=== PATIENT | male | born 1950 | race Caucasian/White ===

== ENCOUNTER → 2023-07-10 09:45 | Outpatient (REF) | payer MEDICARE, OTHER, SELFPAY | LOC: DHSLP 09:45 | PROVIDERS: ATTENDING PHYSICIAN Family Medicine | DX: G47.33 Obstructive sleep apnea (adult) (pediatric) (principal); G47.61 Periodic limb movement disorder | CPT/HCPCS: 95810 ==

== ENCOUNTER 2023-08-26 14:45 | Emergency (ER) | payer MEDICARE, OTHER, SELFPAY ==
[2023-08-26 14:53] VITALS: BP 122/81
--- NOTE | 2023-08-26 16:45 | ED.GENMED ---
History of Present Illness
General
Chief Complaint: Cough
Source: patient
Exam Limitations: none
Time Seen by Provider: 08/26/23 15:37
Nursing documentation reviewed up to this point in time: agreed with
Travel History
Have you had any contact with someone who has COVID-19?: No
Do you have any symptoms of coronavirus? Fever > 100 degrees, chills, cough, shortness of breath, sore throat, loss of taste or smell, muscle aches, or headache?: No
History of Present Illness
History of Present Illness:
73-year-old male with past medical history of previous DVT currently on Eliquis, CAD, previous smoker, diabetes presenting to the emergency department today with concerns of ongoing cough and some mild shortness of breath that is noted for a few
weeks after having COVID. He is seen his primary care doctor multiple times who told him that this may take a few weeks and should resolve eventually. He claims that he went to an urgent care today but the x-ray was not were and he was sent to the
ER to get an x-ray. Denies any specific fevers denies chest pain denies nausea vomiting.
Past History
Past History
ED Past Medical History: CAD, HTN, Hypercholesterolemia, NIDDM, [place] and Other (Shigella , DVT, IBS, Cataracts)
ED Past Surgical History: Appendectomy and Cardiac (Stent)
Social History
Tobacco: Former smoker
Alcohol: None
Personal: Single
Living: with roommate
Employment: Employed
Family History
Family History: Diabetes and CAD
Review of Systems
Review of Systems
Allergies reviewed?: Yes
All Other Systems: ROS reviewed and negative except as documented in HPI and ROS
Phy Exam
Physical Exam
Physical Exam:
GENERAL: Alert , in no apparent distress
EYE: pupils equal and reactive
NECK: Supple, no significant adenopathy.
ENT: o/p clr, mmm.
CARDIAC: Regular rate and rhythm .
LUNGS: Clear breath sounds bilaterally, no acute respiratory distress, no wheezes/rales/rhonchi
ABDOMEN: Soft, without focal tenderness, no r/g, no cvat
NEUROLOGICAL: Alert and oriented, no focal neuro deficits
SKIN: Warm and dry, skin intact.
MUSCULOSKELETAL: No edema, well perfused.
PSYCH: Normal and appropriate interaction.
Course
Orders/Labs/Results
Orders:
Orders
08/26/23 15:59
EKG [Electrocardiogram (*1)] Urgent
Reason for Study: Shortness of Breath
EKG- Treatment ONCE
Chest [CR Chest - 2 Views ] Urgent
Comment:
Reason For Exam: cough sob
Vital Signs
Initial and Last Documented VS:
Initial Vital Signs
Temp Pulse Resp BP Pulse Ox
98.0 F 108 16 122/81 98
08/26/23 14:53 08/26/23 14:53 08/26/23 14:53 08/26/23 14:53 08/26/23 14:53
Last Documented Vital Signs
Temp Pulse Resp BP Pulse Ox
98.0 F 108 16 122/81 98
08/26/23 14:53 08/26/23 14:53 08/26/23 14:53 08/26/23 14:53 08/26/23 14:53
MDM/Problems Addressed
MDM/Problems Addressed:
74-year-old male presenting to the emergency department today with concerns of ongoing cough weeks after having COVID. He feels that he may have a pneumonia he went to urgent care but the x-ray machine was not working thus they sent him to the ER.
Denies any severe symptoms denies fevers denies significant breath or chest pain but claims [place] is going [place] 2 [place] and wanted to get assessed for this. Here he is well-appearing generally no acute distress initial pulse 98%
pulse initially mildly tachycardic but improving without specific treatment on my assessment. X-ray was performed showing potential pneumonia. He was treated with antibiotic otherwise for outpatient management return precautions given.
*Critical Care Note
Total Time (30-74mins, 75-104mins- exclusive of procedures): Not Applicable
ED Attending Note
-
Portions of this chart may have been created with voice recognition software.� Occasional wrong word or��sound alike� substitutions may have occurred due to the inherent limitations of voice recognition software.
Discharge Plan
Departure
Patient Disposition: Home (Routine Discharge)
Date of Disposition: 08/26/23
Time of Disposition: 16:49
Patient with high blood pressure during this ER visit?: No
Condition: Good
Covid-19: Not Applicable
Discharge Problem:
Pneumonia
Instructions: Pneumonia, Adult (DC)
Prescriptions:
New
cefpodoxime 200 mg tablet
200 mg PO BID 7 Days Qty: 14 0RF
azithromycin 500 mg tablet
500 mg PO DAILY 2 Days Qty: 2 0RF
No Action
bupropion HCl 100 MG tablet sustained-release 12 hr
200 tab PO HS
atorvastatin [Lipitor] 80 MG tablet
80 mg PO DAILY
carvedilol 12.5 MG tablet
12.5 mg PO BID
nitroglycerin 0.4 MG tablet, sublingual
0.4 mg sublingual [id number] PRN (Reason: chest pain )
metformin 1,000 MG tablet
1,000 mg PO BID Qty: 0 0RF
Rx Instructions:
Resume sat evening
citalopram 20 MG tablet
60 mg PO DAILY
Victoza 2-Oscar 0.6 mg/0.1 mL (18 mg/3 mL) Pen Injector
1.8 mg SC DAILY
mupirocin 2 % ointment
1 applic topical BID Qty: 1 0RF
Patient Comments:
Patient stared this treatment on 06/26/22 in the morning. Patient admoinistered this medication this mornint @ 04:00 on 06/28/22.
cyanocobalamin (vitamin B-12) [Vitamin B-12] 1,000 mcg Tablet
1,200 mcg PO DAILY
pantoprazole [Protonix] 20 mg Tablet,Delayed Release (Dr/Ec)
20 mg PO DAILY
dicyclomine 20 mg Tablet
20 mg PO DAILY
ezetimibe [Zetia] 10 mg Tablet
10 mg PO DAILY
omega 7-ors-olw-fish oil [Fish Oil] 1,000 mg (120 mg-180 mg) Capsule
2 cap PO DAILY
Hold Instructions: Resume on 07/11/22.
rifaximin 550 mg Tablet
550 mg PO BID PRN (Reason: IBS)
turmeric root extract 500 mg Capsule
500 mg PO DAILY
Hold Instructions: Resume on 07/11/22.
cefadroxil 500 mg capsule
500 mg PO BID Qty: 14 0RF
Rx Instructions:
*Take w/ food
*Take w/ probiotic
*POST-OP USE
oxycodone 5 mg tablet
5 - 10 mg PO Q6HPRN PRN (Reason: 1 tab moderate-2 tabs severe pain) Qty: 30 0RF
Rx Instructions:
Dx TKA
ongoing therapy
Saccharomyces boulardii [Florastor] 250 mg capsule
250 mg PO BID Qty: 1 0RF
Eliquis 2.5 mg tablet
2.5 mg PO BID Qty: 60 1RF
Patient Comments:
Per patient he stopped this medication 10 days ago on 06/17/22.
aspirin [[place] Chewable Aspirin] 81 mg tablet,chewable
81 mg PO DAILY Qty: 30 0RF
Rx Instructions:
reduce aspirin to 81mg daily while on Eliquis
tamsulosin 0.4 MG capsule
0.4 mg PO HS Qty: 0 0RF
acetaminophen [Acetaminophen Pain Relief] 500 mg tablet
1,000 mg PO Q6H Qty: 60 0RF
Rx Instructions:
DO NOT exceed >4000 mg daily.
docusate sodium [Colace] 100 mg capsule
100 mg PO BID Qty: 30 0RF
Rx Instructions:
Take 2x daily while on post-op narcotics.
senna 8.6 mg capsule
17.2 mg PO BID PRN (Reason: constipation) Qty: 30 0RF
Rx Instructions:
Take 2x daily as needed for post-surgical constipation unrelieved by Colace.
spironolactone 25 MG tablet
25 mg PO DAILY Qty: 1 0RF
Rx Instructions:
HOLD if systolic blood pressure <130 while on Oxycodone.
hydrochlorothiazide 12.5 MG capsule
12.5 mg PO DAILY Qty: 30 0RF
Rx Instructions:
HOLD if systolic blood pressure <130 while on Oxycodone.
montelukast 10 MG tablet
10 mg PO DAILYPRN PRN (Reason: asthma) Qty: 0 0RF
tizanidine 2 mg Tablet
2 mg PO TIDPRN PRN (Reason: Spasms) Qty: 1 0RF
Rx Instructions:
Home medication.
Caution with oxycodone - can cause drowsiness.
Referrals:
Salas Frances MD [Family Provider] -
Activity Restrictions/Additional Instructions:
You came to the emergency department today with concerns of cough. You are found to have a likely pneumonia. Please take prescribed antibiotics. Return to the emergency department for any worsening, new or concerning symptoms.
Interventions
Interventions:
*ED COVID-19 Vaccine History Last Done: 08/26/23 14:53
[2023-08-26] MEDS: OMNICEF 300 MG PO (17:02)
[2023-08-26] MEDS: ZITHROMAX 500 MG PO (17:03)
[2023-08-26 17:16] VITALS: BP 130/78
== END 2023-08-26 17:27 | disposition home or self-care (01) ==
LOC: EMR 14:45
PROVIDERS: EMERGENCY PHYSICIAN Emergency Medicine; FAMILY PHYSICIAN Family Medicine
DX: J18.9 Pneumonia, unspecified organism (principal); I25.10 Atherosclerotic heart disease of native coronary artery without angina pectoris; I10 Essential (primary) hypertension; E78.00 Pure hypercholesterolemia, unspecified; E11.36 Type 2 diabetes mellitus with diabetic cataract; I25.2 Old myocardial infarction; K58.9 Irritable bowel syndrome, unspecified; Z79.01 Long term (current) use of anticoagulants; Z82.49 Family history of ischemic heart disease and other diseases of the circulatory system; Z83.3 Family history of diabetes mellitus; Z86.718 Personal history of other venous thrombosis and embolism; Z87.891 Personal history of nicotine dependence; Z90.49 Acquired absence of other specified parts of digestive tract; Z95.5 Presence of coronary angioplasty implant and graft
CPT/HCPCS: 99283; 71046; 93005

== ENCOUNTER → 2023-09-17 15:59 | Outpatient (REF) | payer MEDICARE, OTHER, SELFPAY | LOC: DHCBS HW 15:59 | PROVIDERS: ATTENDING PHYSICIAN Internal Medicine Cardiovascular Disease; FAMILY PHYSICIAN Family Medicine | DX: I10 Essential (primary) hypertension (principal); I25.10 Atherosclerotic heart disease of native coronary artery without angina pectoris; R06.02 Shortness of breath | CPT/HCPCS: 93306 ==

== ENCOUNTER → 2023-09-25 10:19 | Outpatient (REF) | payer MEDICARE, OTHER, SELFPAY ==
[2023-09-25 11:16] LABS: % Immature Granulocytes 0.2 % (0-0.5); % Lymphocytes 41.2 % (20.5-51.1); % Monocytes 7.6 % (1.7-9.3); Absolute Basophils 0.1 10^3/uL (0-0.2); Absolute Eosinophils 0.3 10^3/uL (0-0.7); Absolute Lymphocytes 2.4 10^3/uL (1.2-3.4); Absolute Monocytes 0.4 10^3/uL (0.1-0.6); Absolute Neutrophils 2.6 10^3/uL (1.4-6.5); Hematocrit 38.7 % (39.0-52.0); Hemoglobin 13.4 g/dL (13.0-18.0); Mean Corp Hgb Conc. 34.6 g/dL (33.0-37.0); Mean Corpuscular Hgb 31.8 pg (27.0-31.0); Mean Corpuscular Volume 91.9 fL (80.0-94.0); Mean Platelet Volume 9.8 fL (7.4-10.4); Nucleated Red Blood Cells % 0 % (-); Platelet Count 221 10^3/uL (130-400); Red Blood Cell Count 4.21 10^6/uL (4.70-6.10); Red Cell Dist. Width 12.9 % (11.5-14.5); White Blood Cell Count 5.8 10^3/uL (4.8-10.8)
[2023-09-25 12:18] LABS: ALT (SGPT) 18 U/L (0-50); AST (SGOT) 17 U/L (17-59); Albumin 4.1 g/dl (3.5-5.0); Alkaline Phosphatase 61 U/L (38-126); Blood Urea Nitrogen 23 mg/dl (9-20); Calcium 9.3 mg/dl (8.4-10.2); Chloride 98 mmol/L (98-107); Glucose 376 mg/dl (70-99); HDL Cholesterol 41 mg/dl; Sodium 133 mmol/L (135-145); Total Bilirubin 0.5 mg/dl (0.2-1.3); Total Cholesterol 220 mg/dl (50-199); Total Protein 6.7 g/dl (6.3-8.2); eGFR > 60.00
[2023-09-25 12:26] LABS: Carbon Dioxide 24 mmol/L (22-30); Potassium 4.7 mmol/L (3.5-5.1)
[2023-09-25 12:37] LABS: Microalbumin, Random Urine 0.6 mg/dl (0.6-1.7); Microalbumin/creatinine Ratio 14.1 mg/g; Triglyceride 499 mg/dl (10-149)
[2023-09-25 12:40] LABS: TSH 1.55 uIU/ml (0.47-4.68)
[2023-09-25 13:10] LABS: LDL Cholesterol, Direct 104 mg/dl
== END ==
LOC: REG 10:19
PROVIDERS: ATTENDING PHYSICIAN Family Medicine
DX: E11.9 Type 2 diabetes mellitus without complications (principal); E78.5 Hyperlipidemia, unspecified; R53.83 Other fatigue
CPT/HCPCS: 36415; 80053; 80061; 82043; 82570; 83036; 83721; 84443; 85025

== ENCOUNTER 2023-11-21 06:51 | Emergency (ER) | payer MEDICARE, OTHER, SELFPAY ==
[2023-11-21] VITALS (10 sets, daily range): BP systolic 149–167; BP diastolic 84–91; PULSE 73; O2SAT 99; BMI 25.9
--- NOTE | 2023-11-21 06:57 | ED.CVA ---
History of Present Illness
General
Chief Complaint: CVA/TIA Symptoms
Source: patient and ambulance crew
Exam Limitations: none
Time Seen by Provider: 11/21/23 06:55
Nursing documentation reviewed up to this point in time: agreed with
Onset of Stroke Symptoms
Onset of symptoms known: Yes
Date of onset of symptoms: 11/21/23
Time of onset of symptoms: 05:30
Travel History
Have you had any contact with someone who has COVID-19?: No
Do you have any symptoms of coronavirus? Fever > 100 degrees, chills, cough, shortness of breath, sore throat, loss of taste or smell, muscle aches, or headache?: No
History of Present Illness
History of Present Illness:
73-year-old male presents emergency department after waking up at 5 AM, having a headache, and feeling a sharp pain in his left neck. He notes numbness and tingling and weakness in his left arm and leg. He takes Eliquis for history of blood clots,
and states he took Eliquis this morning.
Past History
Past History
ED Past Medical History: CAD, HTN, Hypercholesterolemia, NIDDM, [place] and Other (Shigella , DVT, IBS, Cataracts)
ED Past Surgical History: Appendectomy and Cardiac (Stent)
Social History
Tobacco: Former smoker
Alcohol: None
Drug: None
Personal: Single
Living: with roommate
Employment: Employed
Family History
Family History: Diabetes and CAD
Review of Systems
Review of Systems
Allergies reviewed?: Yes
All Other Systems: Not applicable
Constitutional: Reports no symptoms
EENT: Reports no symptoms
Respiratory: Reports no symptoms
Cardiac: Reports no symptoms; Denies chest pain
ABD/GI: Reports no symptoms
: Reports no symptoms
Musculoskeletal: Reports no symptoms
Skin: Reports no symptoms
Neurological: Reports weakness and numbness
Endocrine: Reports no symptoms
Hematologic/Lymphatic: Reports no symptoms
Psychiatric: Reports no symptoms
Phy Exam
Physical Exam
Physical Exam:
Physical Exam
General: no apparent distress, not acutely ill
Neck: supple. no meningeal signs. normal posterior pharynx
Heart: s1/s2 regular rate and rhythm, no murmur. equal radial
pulses.
HEENT: Pupils equal round reactive to light, EOMI
Lungs: no acute respiratory distress. clear bilaterally
Abdomen: normal bowel sounds. not tender. no CVAT
Neuro: alert and oriented. mild left leg and arm weakness cranial nerves II through XII intact
Skin: no rash
Psychiatric: well kept. interactive and cooperative
Extremities: no edema. no calf tenderness. negative homans. good distal pulses
Scores
NIH Stroke Score
Level of Consciousness: 0 - Alert
LOC Questions: 0-Answers both correctly
LOC Commands: 0-Performs both correctly
Best Horizontal Gaze: 0-Normal
Visual Jennings: 0=Normal, no visual loss
Facial Palsy: 0=Normal, symmetrical
Motor - Right Arm: 0=No drift 10 seconds
Motor - Left Arm: 1=Drift < 10 seconds
Motor - Right Le-No drift 5 seconds
Motor - Left Le-Drift < 5 seconds
Limb Ataxia: 0-Absent
Sensation: 0-Normal
Best Language: 0-No aphasia
Dysarthria: 0-Normal
Extinction and Inattention: 0-No abnormality
Total Score:: 2
Course
Orders/Labs/Results
Orders:
Orders
11/21/23 Breakfast
2000 calorie (17 carb) Diabetic
At Your Request: Full Participation
11/21/23 06:55
CT Head W/o Cont STROKE ALERT Urgent
Comment:
Reason For Exam: left arm and leg weakness 530am
CT Head/Neck Ang STROKE ALERT Urgent
Comment:
Reason For Exam: left arm and leg weakness 530am
Cardiac Monitoring- Treatment ONCE
IV Insert/Care/Rem.- Treatment PRN
Pulse Ox/cont/shift [RESP] Stat
Quantity: 1
11/21/23 06:56
EKG [Electrocardiogram (*1)] Stat
Reason for Study: Fatigue / Weakness
Electrocardiogram (*1) Stat
Reason for Study: Other
Other Reason for Exam: neuro symptoms
EKG- Treatment ONCE
EKG- Treatment ONCE
11/21/23 06:57
Complete Blood Count/With Diff Urgent
Comprehensive Metabolic Panel Urgent
PTT Urgent
Prothrombin Time Urgent
11/21/23 08:03
Aspirin 325 mg PO NOW STA
Prochlorperazine [Compazine] 10 mg PO NOW STA
NIH Stroke Scale As Directed
Directions: Per protocol
Neurological Checks As Directed
Frequency: Per unit guidelines
11/21/23 08:04
MR Brain Without Contrast Routine
Comment:
Reason For Exam: Eval R subcortical infarct, L leg/arm weakness
Recent pill cam endoscopy?: No
11/21/23 08:13
Occupational Therapy Consult [Ot Eval And Treat] Routine
Pt Eval And Treat Routine
Treatment: LEft arm leg weakness ?stroke or migraine
Activity Level: Out of Bed- Chair
11/21/23 16:00
Acetaminophen [Tylenol] 1,000 mg PO TID
11/21/23 18:00
Atorvastatin [Lipitor] 80 mg PO QPM
11/22/23 06:00
Cardiovascular Evaluation IN AM
Glycohemoglobin (HgbA1c) IN AM
11/22/23 08:00
Aspirin Low Dose EC [Aspir Low (Enteric Coated)] 81 mg PO DAILY
Abnormal Lab Results
11/21/23
06:57
RBC 4.25 L 10^6/uL
(4.70-6.10)
MCH 31.8 H pg
(27.0-31.0)
Glucose 142 H mg/dl
(70-99)
11/21/23 06:57
11/21/23 06:57
Vital Signs
Initial and Last Documented VS:
Initial Vital Signs
BP
165/87
11/21/23 06:52
Last Documented Vital Signs
Temp Pulse Resp BP Pulse Ox
98.7 F 102 17 165/89 98
11/21/23 07:26 11/21/23 12:03 11/21/23 12:03 11/21/23 12:03 11/21/23 11:52
*Radiology
Radiology exam reviewed: radiology read reviewed (CT head no acute findings, CT head and neck angiography no acute findings, MRI brain normal)
*Pulse Oximetry
Patient hypoxic: no
*EKG
Interpreted by ED Provider?: Yes
EKG Intrepretation Date: 11/21/23
EKG Intrepretation Time: 06:59
Interpretation: normal
Comparison EKG: changes noted
Heart Rate: 78
Rate: normal
Rhythm: sinus
Pinon: normal axis
Interval: normal interval
QRS Pattern: normal QRS
Ischemia: no ischemia
*Financial Economist Interpretation
Rate: normal
Interpretation: normal
Heart Rate: 78
Rhythm: sinus
*Critical Care Note
Total Time (30-74mins, 75-104mins- exclusive of procedures): 30
comment:
Critical care statement: A total of 30 minutes of critical care time was provided for this patient. This includes management of unstable vital signs, evaluation of the patient at bedside, reviewing the patient's pertinent medical records, discussion
with consultants, review of old EKGs and review of pertinent medical records. This time with separate from time utilized to perform the aforementioned documented procedures
Data Reviewed
Prescriptions/Medications Considered But Not Given:
TNK considered, but not indicated
Patient Management
Social determinants of health affecting care: Living situation
Discussion with other providers: Hospitalist and Trust Manager (Neurology, Dr. Castillo and Dr. Goddard)
Escalation/DeEscalation of care consider admission/obs:
MRI negative, admit not indicated
ED Attending Note
-
Portions of this chart may have been created with voice recognition software.� Occasional wrong word or��sound alike� substitutions may have occurred due to the inherent limitations of voice recognition software.
Discharge Plan
Departure
Patient Disposition: Home (Routine Discharge)
Date of Disposition: 11/21/23
Time of Disposition: 08:10
Admit to: Telemetry
Presentation/result/management discussed w/ accepting MD/DO: Hospitalist
Patient with high blood pressure during this ER visit?: Yes
Condition: Fair
Discharge Problem:
Paresthesia
Instructions: Paresthesia (DC), BLOOD PRESSURE
Prescriptions:
No Action
atorvastatin [Lipitor] 80 MG tablet
80 mg PO DAILY
carvedilol 12.5 MG tablet
12.5 mg PO BID
metformin 1,000 MG tablet
1,000 mg PO BID Qty: 0 0RF
citalopram 20 MG tablet
40 mg PO DAILY
pantoprazole [Protonix] 20 mg Tablet,Delayed Release (Dr/Ec)
20 mg PO DAILY
ezetimibe [Zetia] 10 mg Tablet
10 mg PO DAILY
Eliquis 2.5 mg tablet
2.5 mg PO BID Qty: 60 1RF
aspirin [[place] Chewable Aspirin] 81 mg tablet,chewable
81 mg PO DAILY Qty: 30 0RF
zinc sulfate 25 mg zinc (110 mg) Tablet
25 mg PO DAILY
meloxicam 7.5 mg Tablet
7.5 mg PO DAILYPRN PRN (Reason: arthritis)
candesartan 8 mg Tablet
8 mg PO DAILY
vitamin E 268 mg (400 unit) Capsule
268 mg PO DAILY
bupropion HCl 300 mg Tablet Extended Release 24 Hr
300 mg PO DAILY
cholecalciferol (vitamin D3) [Vitamin D3] 25 mcg (1,000 unit) Tablet
25 mcg PO DAILY
insulin glargine [Lantus Solostar U-100 Insulin] 100 unit/mL (3 mL) Insulin Pen
15 unit SC HSPRN PRN (Reason: blood sugar)
Descovy 200-25 mg Tablet
1 tab PO DAILY
Mounjaro 2.5 mg/0.5 mL Pen Injector
2.5 mg SC PATEL@1400
Referrals:
Royal Goddard MD [Active] - Call in 1-3 days for appt
UNKNOWN,NO INTERVIEW [Family Provider] -
Activity Restrictions/Additional Instructions:
Take aspirin 81 mg daily and continue eliquis twice a day
Interventions
Interventions:
*Risk Screen - Suicide Last Done: 11/21/23 07:31
*General Assessment Last Done: 11/21/23 07:28
*Neglect/Abuse Screening Last Done: 11/21/23 07:28
ED- Fall Risk Assessment Last Done: 11/21/23 07:31
*ED COVID-19 Vaccine History Last Done: 11/21/23 07:28
ED- Pulmonary Assessment Last Done: 11/21/23 07:31
ED- Neurological Assessment Last Done: 11/21/23 07:31
ED- Cardiac Assessment Last Done: 11/21/23 07:31
ED Swallowing Screen Last Done: 11/21/23 10:12
Discharge Date and Time
Print Language: BELARUSIAN
[2023-11-21 07:09] LABS: % Basophils 1.1 % (0-2); % Eosinophils 4.9 % (0-6); % Immature Granulocytes 0.5 % (0-0.5); % Lymphocytes 41.7 % (20.5-51.1); % Monocytes 8.2 % (1.7-9.3); % Neutrophils 43.6 % (42.2-75.2); Absolute Basophils 0.1 10^3/uL (0-0.2); Absolute Eosinophils 0.3 10^3/uL (0-0.7); Absolute Lymphocytes 2.7 10^3/uL (1.2-3.4); Absolute Monocytes 0.5 10^3/uL (0.1-0.6); Absolute Neutrophils 2.8 10^3/uL (1.4-6.5); Hematocrit 39.6 % (39.0-52.0); Hemoglobin 13.5 g/dL (13.0-18.0); Mean Corp Hgb Conc. 34.1 g/dL (33.0-37.0); Mean Corpuscular Hgb 31.8 pg (27.0-31.0); Mean Corpuscular Volume 93.2 fL (80.0-94.0); Mean Platelet Volume 9.3 fL (7.4-10.4); Nucleated Red Blood Cells % 0 % (-); Platelet Count 200 10^3/uL (130-400); Red Blood Cell Count 4.25 10^6/uL (4.70-6.10); Red Cell Dist. Width 12.9 % (11.5-14.5); White Blood Cell Count 6.4 10^3/uL (4.8-10.8)
[2023-11-21 07:14] LABS: INR 0.92; PT 12.2 Sec (11.4-14.6)
[2023-11-21 07:15] LABS: APTT 30.4 Sec (23.4-35.0)
[2023-11-21 07:17] LABS: ALT (SGPT) 20 U/L (0-50); AST (SGOT) 25 U/L (17-59); Albumin 4.2 g/dl (3.5-5.0); Alkaline Phosphatase 47 U/L (38-126); Blood Urea Nitrogen 20 mg/dl (9-20); Carbon Dioxide 25 mmol/L (22-30); Chloride 101 mmol/L (98-107); Glucose 142 mg/dl (70-99); Potassium 4.5 mmol/L (3.5-5.1); Sodium 135 mmol/L (135-145); Total Bilirubin 0.5 mg/dl (0.2-1.3); Total Protein 6.9 g/dl (6.3-8.2); eGFR > 60.00
--- NOTE | 2023-11-21 07:36 | CON.NEURO4 ---
Addendum entered and electronically signed by Juan Carlos Castillo MD 11/21/23 12:47:
1. Place on 1000 mg twice daily levetiracetam
2. Advised on minimizing marijuana use and ideally cutting out
3. Advised on not taking extra doses of seizure medication unless directed by medical professional
4. Provided extensive education on the need for consistent use of levetiracetam and that he may not have been on a sufficient dose for seizure prevention, as similar and 50 mg twice daily levetiracetam is only low to medium dose and is nowhere
near maximum dosing range for the medication. Discussed importance of medication and the risks of uncontrolled seizures as significant and that the majority of patients can have seizures controlled on 1 medication.
5. I gave information for the neurology [facility] for follow-up
6. From my perspective would not require EEG or brain imaging given known epilepsy and normal neurologic exam currently
7. No barriers to discharge from my standpoint
Original Note:
Consultation - Neurology 4
-
CONSULTING PHYSICIAN: Genoveva Castillo
REFERRING PHYSICIAN: ER
DICTATED BY: Genoveva Castillo
DATE/TIME OF REQUEST: 11/21/23
DATE/TIME OF CONSULTATION: 11/21/23
Reason for Consultation: Stroke alert left arm and leg weakness
History of Present Illness:
Patient is a 73-year-old man with past medical history of pbi-nivypxu-vcrsojrpu diabetes mellitus, hypertension, previous DVT, coronary artery disease with history of WI and stent presented hospital with acute onset of left facial paresthesia left
neck and head pain and left arm and leg weakness. Patient not present last night noticed sometime this morning around 4-5 AM. Patient felt like he had an unusual sensation like something was moving up his neck into his head that was uncomfortable
and painful. Symptoms seem to be much worse when EMS arrived he had greater left arm weakness and was having significant difficulty walking he does note that the symptoms seem improved at this time but not completely resolved sort of feeling of
weakness in the left arm and leg. Headache is moderate to severe no nausea or vomiting or photophobia at this time. No recent head or neck trauma. He had visit with his primary care doctor who he reports instructed him to resume Eliquis given
history of DVT and he did take the Eliquis this morning. He does not have any missed doses of daily aspirin but is usually compliant with this. He has had no similar events of unilateral weakness in the past no history of stroke or TIA. He does
relate a history of migraine headaches without aura that seem to have abated around 4 years ago with these headaches due to severe head pain that was pounding with some mild photophobia no significant nausea or vomiting no vision changes paresthesia
or weakness with these headaches.
Past Medical History: Coronary artery disease with history of WI status post stent, osteoarthritis, hypertension, hyperlipidemia, left leg DVT, venous insufficiency, orthostatic hypotension, obstructive sleep apnea on CPAP, degenerative disc
disease, anxiety/depression, klu-ifqmtkr-kjvildlfc diabetes mellitus
Surgical History: Cataract surgery, coronary stent, appendectomy, left inguinal hernia repair
Family History: Non-contributory
Social History: Retired, stays active in organizations and is social, retired from [employer], quit smoking about 1985 and alcohol as well
Review of Symptoms:
Patient denies any fever, headache, chest pain, shortness of breath, GI or symptoms.
Physical Exam:
Middle-age man no distress well-appearing no signs of head or neck trauma eyes are clear oropharynx is clear, neck supple forage motion no masses, heart rate regular breathing unlabored abdomen soft nontender no lower extremity no rash seen
Neurologic Examination:
The patient is awake, alert and oriented x 3. He is able to follow commands and answer questions appropriately. There is no aphasia or dysarthria. On cranial nerve assessment, pupils are 3 mm bilateral, round and reactive to light and
accommodation. Visual jennings are full. Extraocular movements are intact. Facial sensations are intact and bilaterally symmetrical, there is no facial asymmetry. Subjective left face paresthesia V2-V3 to light touch. Hearing is intact bilaterally
to normal conversation volume. Tongue palate and uvula are midline. Sternocleidomastoid strengths are full bilaterally. Shoulder abduction 5/5 arm flexion 5/5, left leg hip flexion shows some mild weakness 4+/5, right leg hip flexion 5/5. No
downward drift of the arms or pronator drift of the arms, mild left leg drifting down from antigravity position. Deep tendon reflexes are 2+ bilateral upper and lower extremities and Babinski is absent bilaterally. No sensory neglect. Coordination
is intact by finger to nose bilaterally.
Neuro Imaging:
CTA head and neck with no intracranial occlusion no significant intracranial stenosis no carotid stenosis basilar artery patent
No acute infarct seen no hemorrhage no mass
Impressions
1. Acute onset left facial paresthesia and mild left arm and leg weakness, accompanied by headache. Most concerning for minor stroke or TIA, migraine headache with motor symptoms is on differential diagnosis but would not assume this given his
age and pre-existing medical conditions.
2. History of coronary artery disease and myocardial infarction previously status post stent
3. History of DVT in the left leg reported as unprovoked
4. Azt-ouvlgnt-gozcytnoy diabetes mellitus
5. Hypertension
6. Hyperlipidemia
7. Obstructive sleep apnea
Patient has the following risk factors for their symptoms: Hypertension, diabetes
IV Tenecteplase/IAT candidacy: Not a candidate for tenecteplase given apixaban use this morning, no large vessel occlusion on CTA of the head neck would not be an ideal candidate
Recommendations:
1. Would allow for permissive hypertension goal less than 220/120 until tomorrow morning at 7 AM
2. Would hold apixaban
3. Give aspirin 325 mg once now continue aspirin 81 mg daily
4. Neurologic checks and NIH stroke scales
5. Continue atorvastatin 80 mg daily
6. Monitor on cardiac telemetry and check transthoracic echocardiogram
7. Check MRI of the brain without contrast, CTA of the head and neck checked in the ED
8. For headache would give 10 mg p.o. prochlorperazine once, 1000 mg 3 times daily Tylenol for today
9. PT/OT evaluations
10. Check lipid panel and HbA1c
Will follow
Discussed patient care with: Patient, ED
NIH Stroke Score
Subsequent NIH Scale
Date of Subsequent NIH Scale: 11/21/23
Time of Subsequent NIH Scale: 08:00
NIH Stroke Score
Level of Consciousness: 0 - Alert
LOC Questions: 0-Answers both correctly
LOC Commands: 0-Performs both correctly
Best Horizontal Gaze: 0-Normal
Visual Jennings: 0=Normal, no visual loss
Facial Palsy: 0=Normal, symmetrical
Motor - Right Arm: 0=No drift 10 seconds
Motor - Left Arm: 0=No drift 10 seconds
Motor - Right Le-No drift 5 seconds
Motor - Left Le-Drift < 5 seconds
Limb Ataxia: 0-Absent
Sensation: 1-Mild loss
Best Language: 0-No aphasia
Dysarthria: 0-Normal
Extinction and Inattention: 0-No abnormality
Total Score:: 2
Home Medications
-
Home Medications
bupropion HCl 100 mg tablet,12 hr sustained-release 200 tab PO HS 10/09/09
atorvastatin 80 mg tablet (Lipitor) 80 mg PO DAILY 05/30/18
carvedilol 12.5 mg tablet 12.5 mg PO BID 05/30/18
metformin 1,000 mg tablet 1,000 mg PO BID ##0 05/30/18
nitroglycerin 0.4 mg sublingual tablet 0.4 mg sublingual [id number] PRN chest pain 05/30/18
citalopram 20 mg tablet 60 mg PO DAILY 07/21/20
liraglutide 0.6 mg/0.1 mL (18 mg/3 mL) subcutaneous pen injector (Victoza 2-Oscar) 1.8 mg SC DAILY 07/21/20
cyanocobalamin (vitamin B-12) 1,000 mcg tablet (Vitamin B-12) 1,200 mcg PO DAILY 06/07/22
dicyclomine 20 mg tablet 20 mg PO DAILY 06/07/22
ezetimibe 10 mg tablet (Zetia) 10 mg PO DAILY 06/07/22
mupirocin 2 % topical ointment 1 applic topical BID #1 tube 06/07/22
omega 6-cyn-wgb-fish oil 1,000 mg (120 mg-180 mg) capsule (Fish Oil) 2 cap PO DAILY 06/07/22
pantoprazole 20 mg tablet,delayed release (Protonix) 20 mg PO DAILY 06/07/22
rifaximin 550 mg tablet 550 mg PO BID PRN IBS 06/07/22
turmeric root extract 500 mg capsule 500 mg PO DAILY 06/07/22
Saccharomyces boulardii 250 mg capsule (Florastor) 250 mg PO BID #1 cap 06/27/22
apixaban 2.5 mg tablet (Eliquis) 2.5 mg PO BID Blood clot prevention/tx #60 tabs 06/27/22
aspirin 81 mg chewable tablet ([place] Chewable Low Dose Aspirin) 81 mg PO DAILY #30 tabs 06/27/22
cefadroxil 500 mg capsule 500 mg PO BID infection prevention #14 caps 06/27/22
oxycodone 5 mg tablet 5 - 10 mg (1 - 2 x 5 mg) PO Q6HPRN PRN 1 tab moderate-2 tabs severe pain #30 tabs 06/27/22
tamsulosin 0.4 mg capsule 0.4 mg PO HS #0 caps 06/27/22
acetaminophen 500 mg tablet (Acetaminophen Pain Relief) 1,000 mg (2 x 500 mg) PO Q6H #60 tabs 06/28/22
docusate sodium 100 mg capsule (Colace) 100 mg PO BID #30 caps 06/28/22
hydrochlorothiazide 12.5 mg capsule 12.5 mg PO DAILY #30 caps 06/28/22
montelukast 10 mg tablet 10 mg PO DAILYPRN PRN asthma #0 tabs 06/28/22
sennosides 8.6 mg capsule (senna) 17.2 mg (2 x 8.6 mg) PO BID PRN constipation #30 caps 06/28/22
spironolactone 25 mg tablet 25 mg PO DAILY #1 tab 01/18/23
tizanidine 2 mg tablet 2 mg PO TIDPRN PRN Spasms #1 tab 06/28/22
azithromycin 500 mg tablet 500 mg PO DAILY 2 days #2 tabs 08/26/23
cefpodoxime 200 mg tablet 200 mg PO BID 7 days #14 tabs 08/26/23
Allergies
-
Allergies
Allergy/AdvReac Type Severity Reaction Status Date / Time
codeine Allergy Resp. Verified 08/26/23 14:55
Depression
lisinopril Allergy Tongue Verified 08/26/23 14:55
Swelling
Penicillins Allergy Rash Verified 08/26/23 14:55
Sulfa (Sulfonamide Allergy Rash Verified 08/26/23 14:55
Antibiotics)
Vital Signs / Labs
-
Vital Signs and Labs:
Temp Pulse Resp BP Pulse Ox
98.7 F 76 18 165/87 96
11/21/23 07:26 11/21/23 07:26 11/21/23 07:26 11/21/23 07:26 11/21/23 07:31
11/21/23 06:57
11/21/23 06:57
11/21/23
06:57
RBC 4.25 L
MCH 31.8 H
Glucose 142 H
[2023-11-21] MEDS: ASPIRIN 325 MG PO (08:51)
[2023-11-21] MEDS: COMPAZINE 10 MG PO (08:51)
--- NOTE | 2023-11-21 12:34 | CON.HOSP ---
Family Physician
-
Family Physician: NO INTERVIEW UNKNOWN
Chief Complaint
-
left sided weakness
History of Present Illness
73-year-old with past medical history for type 2 diabetes, hypertension, DVT, coronary artery disease, [place] presented to us with left-sided numbness and weakness since this morning. Patient was having significant difficulty with walking. Patient
also complained of left-sided headache.. Symptoms subsided by the time he got here. Denies any nausea, vomiting, abdominal pain, blurry vision. Patient denied any fever, chills, chest pain, shortness of breath. Denied abdominal pain, nausea,
vomiting, diarrhea. Patient denied dysuria materia.
Head CT, CT head neck, MRI with no acute findings.
Medical History
Past Medical History
Past Medical History: Reports Other
Additional Past Medical History:
Diabetes
Depression
Anxiety
EGD
Coronary artery disease
MRI
Osteoarthritis
Hypertension
Hyperlipidemia
DVT
Venous insufficiency
Hypertension
Obstructive sleep apnea
Past Surgical History: Reports Other
Additional Past Surgical History:
Cardiac stent
Surgery
Appendectomy
Left inguinal repair
Social History
Tobacco: Former Smoker
Alcohol: Former
Drug: None
Family History
Family History: Reviewed & Not Pertinent
Allergies / Home Medications
Allergies reflects when Allergies were last updated in [facility].
Home Medications with original date entered in [facility]
Allergy/Medication List:
Allergies
Allergy/AdvReac Type Severity Reaction Status Date / Time
codeine Allergy Resp. Verified 08/26/23 14:55
Depression
lisinopril Allergy Tongue Verified 08/26/23 14:55
Swelling
Penicillins Allergy Rash Verified 08/26/23 14:55
Sulfa (Sulfonamide Allergy Rash Verified 08/26/23 14:55
Antibiotics)
Home Medications
atorvastatin 80 mg tablet (Lipitor) 80 mg PO DAILY 05/30/18
carvedilol 12.5 mg tablet 12.5 mg PO BID 05/30/18
metformin 1,000 mg tablet 1,000 mg PO BID ##0 05/30/18
citalopram 20 mg tablet 40 mg PO DAILY 07/21/20
ezetimibe 10 mg tablet (Zetia) 10 mg PO DAILY 06/07/22
pantoprazole 20 mg tablet,delayed release (Protonix) 20 mg PO DAILY 06/07/22
apixaban 2.5 mg tablet (Eliquis) 2.5 mg PO BID Blood clot prevention/tx #60 tabs 06/27/22
aspirin 81 mg chewable tablet ([place] Chewable Low Dose Aspirin) 81 mg PO DAILY #30 tabs 06/27/22
bupropion HCl 300 mg 24 hr tablet, extended release 300 mg PO DAILY 11/21/23
candesartan 8 mg tablet 8 mg PO DAILY 11/21/23
cholecalciferol (vitamin D3) 25 mcg (1,000 unit) tablet (Vitamin D3) 25 mcg PO DAILY 11/21/23
emtricitabine 200 mg-tenofovir alafenamide fumarate 25 mg tablet (Descovy) 1 tab PO DAILY 11/21/23
insulin glargine 100 unit/mL (3 mL) subcutaneous pen (Lantus Solostar U-100 Insulin) 15 unit SC HSPRN PRN blood sugar 11/21/23
meloxicam 7.5 mg tablet 7.5 mg PO DAILYPRN PRN arthritis 11/21/23
tirzepatide 2.5 mg/0.5 mL subcutaneous pen injector (Mounjaro) 2.5 mg SC PATEL@1400 11/21/23
vitamin E 268 mg (400 unit) capsule 268 mg PO DAILY 11/21/23
zinc sulfate 25 mg zinc (110 mg) tablet 25 mg PO DAILY 11/21/23
Review of Systems
-
Constitutional: Reports No Symptoms
EENT: Reports No Symptoms
Respiratory: Reports No Symptoms
Cardiac: Reports No Symptoms
Abdomen/GI: Reports No Symptoms
: Reports No Symptoms
Musculoskeletal: Reports No Symptoms
Skin: Reports No Symptoms
Neurological: Reports Weakness and Numbness
Endocrine: Reports No Symptoms
Hematologic/Lymphatic: Reports No Symptoms
Psych: Reports No Symptoms
Physical Exam
Vital Signs
Vital Signs
Temp Pulse Resp BP Pulse Ox
98.7 F 102 17 165/89 98
11/21/23 07:26 11/21/23 12:03 11/21/23 12:03 11/21/23 12:03 11/21/23 11:52
Physical Exam
General: Well Developed, Well Nourished and No Apparent Distress
HEENT: Normocephalic, Moist Mucous Membranes and Atraumatic
Respiratory: Clear
Cardiac: S1/S2 and Regular Rhythm; Negative Murmur or Rub
GI: Soft, Non Tender, Non Distended and Normal Bowel Sounds
Rectal: Deferred by Provider
Musculoskeletal: No Clubbing, No Cyanosis and No Edema
Skin: Negative Rash
Neuro: AO x 3 and Nonfocal/Grossly Intact
Psych: Calm
Laboratory Results
-
Laboratory Results
11/21/23 06:57
11/21/23 06:57
PT 12.2 Sec (11.4-14.6) 11/21/23 06:57
INR 0.92 11/21/23 06:57
APTT 30.4 Sec (23.4-35.0) 11/21/23 06:57
Total Bilirubin 0.5 mg/dl (0.2-1.3) 11/21/23 06:57
AST 25 U/L (17-59) 11/21/23 06:57
ALT 20 U/L (0-50) 11/21/23 06:57
Alkaline Phosphatase 47 U/L (38-126) 11/21/23 06:57
Data Reviewed
-
Diagnostic Radiology: Report Reviewed by Me
CT Scan: Report Reviewed by Me
Lab Data: Labs Reviewed
Impression / Plan
-
Left-sided weakness and numbness stroke ruled out. Symptoms likely related to migraine or TIA
-Brain MRI No acute intracranial abnormality noted.
-Head neck CTA with impression of no CT evidence for internal carotid, middle, cerebral or anterior cerebral artery stenosis or occlusion. No evidence for large vessel artery stenosis or occlusion in the posterior circulation. Severe congenital
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 Severe hypoplasia of the P1 segment of the right posterior cerebral artery
-Head CT with no evidence for acute intracranial hemorrhage or transcortical infract. Moderate white matter leukoaraiosis in the frontal and parietal lobes. Suspect tiny chronic lacunar infarcts in the left putamen and right thalamus. Mild
diffuse cerebral or cerebellar volume loss
-Patient was evaluated by physical therapy, patient did very well with activity and walking
-Patient was evaluated by neurology as well-recommended to continue aspirin, continue Eliquis
-Patient stable for discharge home
# Hyperlipidemia
-Continue statin
# Essential hypertension
-candesartan and Coreg continued
# Depression/anxiety
-Bupropion and citalopram continued
-
# History of DVT
-Continue Eliquis
# Type 2 diabetes
-Continue home diabetic medications
# Patient stable for discharge to home
d/w with neurology
-
--- NOTE | 2023-11-21 12:40 | W.PN.UPDATE ---
Update Note
Progress Note Update
I saw and examined the patient.
The [employer] or PA's note was reviewed and I agree with the note.
Comment: 73-year-old male who presented with chief complaints of left facial and left upper extremity weakness and numbness as well as left-sided headache. The patient's symptoms have resolved at this time.
165/89, 22, 17, 98.7 �F, 98% on room air
No acute distress, awake and alert
Regular rate and rhythm, normal S1-S2
Clear to auscultation bilaterally
Cranial nerves II to XII are intact, nonfocal
Lab Results
11/21/23
06:57
WBC 6.4
RBC 4.25 L
Hgb 13.5
Hct 39.6
MCV 93.2
MCH 31.8 H
MCHC 34.1
RDW 12.9
Plt Count 200
MPV 9.3
Abs Immat Gran (auto) 0.0
Absolute Neuts (auto) 2.8
Absolute Lymphs (auto) 2.7
Absolute Monos (auto) 0.5
Absolute Eos (auto) 0.3
Absolute Basos (auto) 0.1
Immature Gran % 0.5
Neutrophils % 43.6
Lymphocytes % 41.7
Monocytes % 8.2
Eosinophils % 4.9
Basophils % 1.1
Nucleated RBC % 0
PT 12.2
INR 0.92
APTT 30.4
Sodium 135
Potassium 4.5
Chloride 101
Carbon Dioxide 25
BUN 20
Creatinine 1.1
eGFR > 60.00
Glucose 142 H
Calcium 10.0
Total Bilirubin 0.5
AST 25
ALT 20
Alkaline Phosphatase 47
Total Protein 6.9
Albumin 4.2
MRI brain: No acute intracranial abnormality noted
CTA head/neck:
NECK CTA:
1. Mild atherosclerotic plaque in both proximal internal carotid arteries causing less than 25% diameter stenosis.
2. Severe tortuosity of the right common and internal carotid arteries.
3. No CTA evidence for stenosis or occlusion in the right vertebral artery.
4. 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
5. Moderate discogenic degenerative disease at C4/C5 and C5/C6 with severe left-sided neural foraminal narrowing at both levels.
6. 1.1 cm nodule in the right lobe of the thyroid gland.
HEAD CTA:
1. No CTA evidence for internal carotid, middle cerebral, or anterior cerebral artery stenosis or occlusion.
2. No CTA evidence for large vessel arterial stenosis or occlusion in the posterior circulation.
3. 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
4. Severe hypoplasia of the P1 segment of the right posterior cerebral artery.
Transient left-sided weakness, paresthesias, headache:
-MRI brain without acute CVA. Case discussed with Dr. Castillo. Patient could have had a TIA or migraine as the etiology of his symptoms. The patient's symptoms have resolved. As per Dr. Castillo the patient is medically cleared for discharge.
Aspirin should be added to his home medication regimen. Eliquis should be continued. Discussed with the ER.
Thank you for the courtesy of this consultation.
== END 2023-11-21 14:27 | disposition home or self-care (01) ==
LOC: EMR 06:51
PROVIDERS: EMERGENCY PHYSICIAN Emergency Medicine
DX: R20.2 Paresthesia of skin (principal); I25.10 Atherosclerotic heart disease of native coronary artery without angina pectoris; I10 Essential (primary) hypertension; E78.00 Pure hypercholesterolemia, unspecified; I25.2 Old myocardial infarction; K58.9 Irritable bowel syndrome, unspecified; E11.36 Type 2 diabetes mellitus with diabetic cataract; F41.8 Other specified anxiety disorders; I87.2 Venous insufficiency (chronic) (peripheral); M19.90 Unspecified osteoarthritis, unspecified site; Z79.01 Long term (current) use of anticoagulants; Z79.624 Long term (current) use of inhibitors of nucleotide synthesis; Z79.85 Long-term (current) use of injectable non-insulin antidiabetic drugs; Z79.899 Other long term (current) drug therapy; Z82.49 Family history of ischemic heart disease and other diseases of the circulatory system; Z83.3 Family history of diabetes mellitus; Z86.718 Personal history of other venous thrombosis and embolism; Z87.891 Personal history of nicotine dependence; Z88.0 Allergy status to penicillin; Z88.1 Allergy status to other antibiotic agents; Z88.2 Allergy status to sulfonamides; Z88.8 Allergy status to other drugs, medicaments and biological substances; Z90.49 Acquired absence of other specified parts of digestive tract; Z95.5 Presence of coronary angioplasty implant and graft
CPT/HCPCS: 99291; 70450; 70496; 70498; 70551; 80053; 85025; 85610; 85730; 93005; Q9967

== ENCOUNTER → 2024-06-10 09:50 | Outpatient (REF) | payer MEDICARE, OTHER, SELFPAY ==
[2024-06-10 11:40] LABS: Microalbumin, Random Urine 0.8 mg/dl (0.6-1.7)
[2024-06-10 11:57] LABS: Glycohemoglobin (HgbA1c) 6.6 % (4.0-5.6)
[2024-06-10 11:59] LABS: ALT (SGPT) 18 U/L (0-50); AST (SGOT) 16 U/L (17-59); Albumin 4.4 g/dl (3.5-5.0); Alkaline Phosphatase 36 U/L (38-126); Blood Urea Nitrogen 22 mg/dl (9-20); Calcium 9.6 mg/dl (8.4-10.2); Carbon Dioxide 24 mmol/L (22-30); Chloride 103 mmol/L (98-107); Glucose 130 mg/dl (70-99); HDL Cholesterol 51 mg/dl; LDL Cholesterol, Calculated 141 mg/dl; Potassium 4.4 mmol/L (3.5-5.1); Sodium 136 mmol/L (135-145); Total Bilirubin 0.4 mg/dl (0.2-1.3); Total Cholesterol 229 mg/dl (50-199); Total Protein 6.8 g/dl (6.3-8.2); Triglyceride 189 mg/dl (10-149); Very Low Density Lipoprotein 37 mg/dl (0-30); eGFR 53.07
[2024-06-10 12:19] LABS: Hepatitis B Surface Antigen Negative (Negative)
[2024-06-10 12:36] LABS: Hepatitis A Antibody, Total Negative (Negative); Hepatitis B Surface Antibody Negative; Hepatitis C Antibody Negative (Negative)
[2024-06-10 14:27] LABS: HIV Combo Negative (Negative)
== END ==
LOC: REG 09:50
PROVIDERS: ATTENDING PHYSICIAN Family Medicine
DX: Z20.9 Contact with and (suspected) exposure to unspecified communicable disease (principal); I10 Essential (primary) hypertension; E78.5 Hyperlipidemia, unspecified; E11.9 Type 2 diabetes mellitus without complications
CPT/HCPCS: 36415; 80053; 80061; 82043; 82570; 83036; 86706; 86708; 86780; 86803; 87340; 87389; 87491; 87591

== ENCOUNTER → 2024-11-24 08:00 | Outpatient (REF) | payer MEDICARE, OTHER, SELFPAY | LOC: RAD 08:00 | PROVIDERS: ATTENDING PHYSICIAN Family Medicine | DX: R05.9 Cough, unspecified (principal) | CPT/HCPCS: 71260; Q9967 ==

== ENCOUNTER 2025-01-07 15:32 | Emergency (ER) | payer MEDICARE, OTHER, SELFPAY ==
[2025-01-07 15:34] VITALS: BP 130/82
[2025-01-07 15:49] LABS: Hematocrit 38.4 % (39.0-52.0); Hemoglobin 13.4 g/dL (13.0-18.0); Mean Corp Hgb Conc. 34.9 g/dL (33.0-37.0); Mean Corpuscular Volume 89.1 fL (80.0-94.0); Nucleated Red Blood Cells % 0 % (-); Platelet Count 243 10^3/uL (130-400); Red Cell Dist. Width 13.0 % (11.5-14.5)
--- NOTE | 2025-01-07 16:04 | ED.GENMED ---
History of Present Illness
General
Chief Complaint: Headache
Source: patient
Exam Limitations: none
Time Seen by Provider: 01/07/25 15:52
Nursing documentation reviewed up to this point in time: agreed with
History of Present Illness
History of Present Illness:
Patient with history of migraine headache and seizure disorder, on Topamax and Keppra, presents to ED secondary to sudden onset of severe left-sided headache, associated with blurred vision and numbness sensation. As had been recommended by his
neurologist and [facility], patient proceeded to take extra tablet of Topamax and called 911. Since then, symptoms gradually improved to a point when he arrived in ED, his symptoms had all resolved completely. Patient no
longer denies any headache. Denies dizziness. Denies numbness. Patient request to be discharged home, as he already has an appointment with his neurologist in 2 weeks.
Past History
Past History
ED Past Medical History: CAD, HTN, Hypercholesterolemia, NIDDM, NV and Other (Shigella , DVT, IBS, Cataracts)
ED Past Surgical History: Appendectomy and Cardiac (Stent)
Social History
Tobacco: Former smoker
Alcohol: None
Drug: None
Personal: Single
Living: with roommate
Employment: Employed
Family History
Family History: Diabetes and CAD
Review of Systems
Review of Systems
Allergies reviewed?: Yes
All Other Systems: ROS reviewed and negative except as documented in HPI and ROS
Constitutional: Reports no symptoms; Denies fever
Respiratory: Reports no symptoms; Denies trouble breathing
Cardiac: Reports no symptoms; Denies palpitations
ABD/GI: Reports no symptoms; Denies nausea or vomiting
Musculoskeletal: Reports no symptoms
Skin: Reports no symptoms
Neurological: Reports dizzy, headache, numbness and other (Blurred vision)
Phy Exam
Physical Exam
Physical Exam:
Physical Exam
General: no apparent distress, not acutely ill. afebrile
Head: nc/at. eomi. no nystagmus
Neck: supple. no meningeal signs.
Heart: s1/s2 regular rate and rhythm
Lungs: no acute respiratory distress. clear bilaterally
Abdomen: normal bowel sounds. not tender.
Neuro: alert and oriented x 3. no focal neurological deficits. normal speech. normal gait
Skin: no rash
Psychiatric: well kept. interactive and cooperative
Extremities: no edema. no calf tenderness.
Course
Orders/Labs/Results
Orders:
Orders
01/07/25 15:39
Basic Metabolic Panel Urgent
Complete Blood Count/With Diff Urgent
Abnormal Lab Results
01/07/25
15:39
WBC 11.9 H 10^3/uL
(4.8-10.8)
RBC 4.31 L 10^6/uL
(4.70-6.10)
Hct 38.4 L %
(39.0-52.0)
MCH 31.1 H pg
(27.0-31.0)
Absolute Neuts (auto) 7.1 H 10^3/uL
(1.4-6.5)
Absolute Lymphs (auto) 3.6 H 10^3/uL
(1.2-3.4)
Absolute Monos (auto) 0.7 H 10^3/uL
(0.1-0.6)
Chloride 110 H mmol/L
(98-107)
Carbon Dioxide 16 L mmol/L
(22-30)
BUN 24 H mg/dl
(9-20)
Glucose 109 H mg/dl
(70-99)
01/07/25 15:39
01/07/25 15:39
Vital Signs
Initial and Last Documented VS:
Initial Vital Signs
Temp Pulse Resp BP Pulse Ox
99.4 F 96 18 130/82 98
01/07/25 15:34 01/07/25 15:34 01/07/25 15:34 01/07/25 15:34 01/07/25 15:34
Last Documented Vital Signs
Temp Pulse Resp BP Pulse Ox
99.4 F 96 18 130/82 98
01/07/25 15:34 01/07/25 15:34 01/07/25 15:34 01/07/25 15:34 01/07/25 16:04
MDM/Problems Addressed
MDM/Problems Addressed:
Patient is alert, awake, and oriented, without any distress nor any neurological deficit, at time of discharge. Patient already has an appointment with his neurologist in 2 weeks, which I believe is appropriate for reevaluation. Patient will be
discharged home in stable condition, to the care of his friend.
*Pulse Oximetry
SaO2: 98
Oxygen Mode of Delivery: Room air
Patient hypoxic: no
*Critical Care Note
Total Time (30-74mins, 75-104mins- exclusive of procedures): Not Applicable
ED Attending Note
-
Portions of this chart may have been created with voice recognition software.� Occasional wrong word or��sound alike� substitutions may have occurred due to the inherent limitations of voice recognition software.
Discharge Plan
Departure
Patient Disposition: Home (Routine Discharge)
Date of Disposition: 01/07/25
Time of Disposition: 16:04
Patient with high blood pressure during this ER visit?: Yes
Condition: Good
Discharge Problem:
Headache, migraine
Instructions: Migraines (DC)
Prescriptions:
No Action
atorvastatin [Lipitor] 80 MG tablet
80 mg PO DAILY
carvedilol 12.5 MG tablet
12.5 mg PO BID
citalopram 20 MG tablet
40 mg PO DAILY
pantoprazole [Protonix] 20 mg Tablet,Delayed Release (Dr/Ec)
20 mg PO DAILY
ezetimibe [Zetia] 10 mg Tablet
10 mg PO DAILY
Eliquis 2.5 mg tablet
2.5 mg PO BID Qty: 60 1RF
zinc sulfate 25 mg zinc (110 mg) Tablet
25 mg PO DAILY
meloxicam 7.5 mg Tablet
7.5 mg PO DAILYPRN PRN (Reason: arthritis)
candesartan 8 mg Tablet
8 mg PO DAILY
vitamin E 268 mg (400 unit) Capsule
268 mg PO DAILY
bupropion HCl 300 mg Tablet Extended Release 24 Hr
300 mg PO DAILY
cholecalciferol (vitamin D3) [Vitamin D3] 25 mcg (1,000 unit) Tablet
25 mcg PO DAILY
insulin glargine [Lantus Solostar U-100 Insulin] 100 unit/mL (3 mL) Insulin Pen
15 unit SC HSPRN PRN (Reason: blood sugar)
Descovy 200-25 mg Tablet
1 tab PO DAILY
Mounjaro 2.5 mg/0.5 mL Pen Injector
2.5 mg SC PATEL@1400
metformin 1,000 MG tablet
1,000 mg PO BID
aspirin [[place] Chewable Aspirin] 81 mg tablet,chewable
81 mg PO DAILY
Activity Restrictions/Additional Instructions:
As discussed, please continue to follow-up with your neurologist at [facility] for continual evaluation and treatment
Interventions
Interventions:
*Risk Screen - Suicide Last Done: 01/07/25 15:34
*General Assessment Last Done: 01/07/25 15:34
*Neglect/Abuse Screening Last Done: 01/07/25 15:34
*ED- Fall Risk Assessment Last Done: 01/07/25 16:07
*ED COVID-19 Vaccine History Last Done: 01/07/25 15:34
*Nursing Disposition Last Done: 01/07/25 16:07
ED- Neurological Assessment Last Done: 01/07/25 15:55
Discharge Date and Time
Discharge Date/Time: 01/07/25 16:34
Print Language: NORWEGI[place]
[2025-01-07 16:09] LABS: Blood Urea Nitrogen 24 mg/dl (9-20); Calcium 9.6 mg/dl (8.4-10.2); Carbon Dioxide 16 mmol/L (22-30); Chloride 110 mmol/L (98-107); Estimated Creatinine Clearance 55 ml/min; Glucose 109 mg/dl (70-99); Sodium 137 mmol/L (135-145); eGFR > 60.00
== END 2025-01-07 16:34 | disposition home or self-care (01) ==
LOC: EMR 15:32
PROVIDERS: Emergency Medicine; EMERGENCY PHYSICIAN Emergency Medicine; FAMILY PHYSICIAN Family Medicine
DX: G43.909 Migraine, unspecified, not intractable, without status migrainosus (principal); I25.10 Atherosclerotic heart disease of native coronary artery without angina pectoris; I10 Essential (primary) hypertension; E78.00 Pure hypercholesterolemia, unspecified; E11.9 Type 2 diabetes mellitus without complications; G40.909 Epilepsy, unspecified, not intractable, without status epilepticus; Z87.891 Personal history of nicotine dependence; Z86.718 Personal history of other venous thrombosis and embolism; Z95.5 Presence of coronary angioplasty implant and graft; Z79.899 Other long term (current) drug therapy
CPT/HCPCS: 99283; 80048; 85025